=== PATIENT | male | born 1980 | race Two or more races ===

== ENCOUNTER 2018-08-13 22:58 | Emergency (ER) | payer SELFPAY ==
[~2018-08-13] VITALS: Ht 177.8 cm; Wt 79.4 kg
--- NOTE | 2018-08-13 23:09 | NUR ---
ED Nurse Note: Patient presents in combative state with complaints of pain in the leg/foot.
--- NOTE | 2018-08-14 | NUR ---
ED Nurse Note: Patient calm momentarily as cuffs have been loosened.
--- NOTE | 2018-08-14 00:17 | NUR ---
ED Nurse Note: covering for primary nurse while on break, pt taken down to imaging department for ct-scan, pt left on gurney awake, alert and cooperative, pt refused imaging and was brought back to ed, police officers remain at bedside.
[2018-08-14] MEDS ORDERED: Bacitracin Oint UD TOPIC ONE ×2 (00:30→00:33)
--- NOTE | 2018-08-14 01:36 | NUR ---
ED Nurse Note: Patient has been cleared for discharge into police custody. Patient vital signs stable.
[2018-08-14 01:43] VITALS: BP 148/71
--- NOTE | 2018-08-14 04:05 | Emergency Room Report ---
History of Present Illness General Chief Complaint: Medical Clearance Source: Patient, Law Enforcement Present Illness HPI 38-year-old male presents ED for evaluation. Patient is here for fpc clearance. Is in police custody. Patient brought in because he banged his head inside the police car. Also states he injured his left foot during arrest. Denies LOC. Pain is throbbing, 8 out of 10, nonradiating. Tetanus is up-to-date. States he is upset because he believes he was arrested. Denies alcohol or drug use. Denies SI or HI. Denies hearing voices. No other aggravating relieving factors. Denies any other associated symptoms Allergies: Coded Allergies: UNABLE TO ASSESS (Unverified , 08/13/18) Patient History Past Medical History: none Past Surgical History: none Pertinent Family History: none Social History: Denies: smoking, alcohol use, drug use Immunizations: UTD Reviewed Nursing Documentation: PMH: Agreed; PSxH: Agreed Nursing Documentation-PMH Past Medical History: No Stated History Review of Systems All Other Systems: negative except mentioned in HPI Physical Exam Vital Signs Date Time Temp Pulse Resp B/P (MAP) Pulse Ox O2 Delivery O2 Flow Rate FiO2 08/13/18 23:07 Room Air 08/13/18 23:09 98.5 08/14/18 01:43 104 19 148/71 91 Sp02 EP Interpretation: reviewed, normal General Appearance: other - agitated/combative Head: normocephalic Eyes: bilateral eye normal inspection, bilateral eye PERRL ENT: hearing grossly normal, normal pharynx, no angioedema, normal voice Neck: full range of motion, supple/symm/no masses Respiratory: normal inspection Cardiovascular #1: normal inspection Gastrointestinal: normal inspection Rectal: deferred Genitourinary: no CVA tenderness Musculoskeletal: tender - L foot Neurologic: other - agitated/combative Psychiatric: normal inspection Skin: normal inspection Lymphatic: normal inspection Medical Decision Making Diagnostic Impression: Primary Impression: Foot contusion Qualified Codes: S90.32XA - Contusion of left foot, initial encounter Additional Impression: Medical clearance for incarceration ER Course Hospital Course 38 yo M presents s/p head injury, L foot pain. in police custody Differential diagnoses include: Fracture, dislocation, sprain, contusion Clinical course Patient placed on stretcher. After initial history and physical, I ordered CT head and L foot xray. Patient initially very agitated and combative. Became more calm and cooperative after handcuffs were loosened. Patient agreed to left foot x-ray but declined CT head. Patient never lost consciousness. No amnesia regarding events I do not believe patient requires CT head at this time Left foot x-ray negative for fracture. Abrasions cleaned and dressings applied. Patient will be medically cleared for incarceration. we'll provide PMD referrals Diagnosis - foot contusion, medical clearance for incarceration Stable and discharged to police custody. Apply ice, keep elevated. weight bear as tolerated. Followup with PMD. Return to ED if symptoms recur or worsen Other X-Ray Diagnostic Results Other X-Ray Diagnostic Results : X-Ray ordered: L foot # of Views/Limited Vs Complete: 3 View Indication: Pain EP Interpretation: Yes Interpretation: no dislocation, no soft tissue swelling, no fractures Impression: No acute disease Electronically Signed by: Electronically signed by Aneesh Tejada MD Last Vital Signs Date Time Temp Pulse Resp B/P (MAP) Pulse Ox O2 Delivery O2 Flow Rate FiO2 08/14/18 01:43 98.1 104 19 148/71 91 Room Air Status: improved Disposition: D/C TO LAW ENFORCEMENT IN CUST Condition: Stable Referrals: NOT CHOSEN OUMAR/,REFERRING (PCP) Kristyn Dalal [facility] Departure Forms: [facility] Clearance Patient Instructions: Foot Contusion, [id number] Aneesh Tejada MD Aug 14, 2018 04:05
--- NOTE | 2018-08-14 11:42 | Diagnostic Imaging Report ---
Indication: Foot pain Comparison: None Findings: 3 views of the left foot were obtained. Mild hallux valgus and bunion noted. No acute fracture or malalignment identified. Soft tissues are unremarkable. IMPRESSION: No acute injury
== END 2018-08-14 01:44 ==
LOC: EMR 23:13
DX: Z02.89 Encounter for other administrative examinations (principal); S90.32XA Contusion of left foot, initial encounter; S09.90XA Unspecified injury of head, initial encounter; Y35.893A Legal intervention involving other specified means, suspect injured, initial encounter; Y92.89 Other specified places as the place of occurrence of the external cause
CPT/HCPCS: 99283